=== PATIENT | female | born 1995 | race Two or more races ===

== ENCOUNTER 2022-06-11 09:44 | Emergency (ER) | payer OTHER ==
[~2022-06-11] VITALS: Ht 162.6 cm; Wt 86.2 kg
[~2022-06-11 09:44] MED LIST: ORPH100T PO; VOLTAREM 50 MG PO
== END 2022-06-11 16:05 | disposition home or self-care (01) ==
LOC: ER 09:44
DX: B34.9 Viral infection, unspecified (principal)